=== PATIENT | female | born 1975 | race Caucasian/White ===

== ENCOUNTER → 2021-01-26 | Outpatient (CLI) | payer BC ==
[~2021-01-26] MED LIST: CETI10TA20 PO; HYDR-3454 PO; PROZAC PO
--- NOTE | 2021-01-26 11:52 | Diagnostic Imaging Report ---
INDICATION: Routine screening. Comparison is made with prior mammogram from 06/25/2016. 2-D and 3-D bilateral screening mammography was performed with CAD. Scattered fibroglandular densities are identified bilaterally. Benign nodularity in both breasts appears stable. No spiculated mass or malignant-appearing microcalcifications are seen. Axillae are unremarkable. IMPRESSION: BI-RADS Category 2 No mammographic features suspicious for malignancy are identified. ACR BI-RADS Category 2: Benign findings. Result letter will be mailed to the patient. Note: At least 10% of breast cancer is not imaged by mammography. Dictated by: Dictated on workstation # [id number]
== END ==
LOC: RAD 09:15
PROVIDERS: ATTEND Nurse Practitioner
DX: Z12.31 Encounter for screening mammogram for malignant neoplasm of breast (principal)
CPT/HCPCS: 77063; 77067

== ENCOUNTER → 2021-10-08 | Outpatient (CLI) | payer BC | LOC: PREOP 05:37 | PROVIDERS: ATTEND Surgery | DX: Z01.818 Encounter for other preprocedural examination (principal) ==

== ENCOUNTER 2021-10-16 10:47 | Day surgery (SDC) | payer BC ==
[~2021-10-16] VITALS: Ht 162.6 cm; Wt 114.5 kg
[2021-10-16] MEDS ORDERED: LACTATED RINGERS 1,000 ML IV ONE (10:49)
[2021-10-16] MEDS ORDERED: LACTATED RINGERS 1,000 ML IV STA (10:52)
[2021-10-16 11:15] VITALS: BP 126/78
[2021-10-16] MEDS ORDERED: PROPOFOL INJECTION 50 ML IV ONE (11:31)
--- NOTE | 2021-10-16 11:36 | Progress Note-Pre Operative ---
Pre-Operative Progress Note H&P Reviewed The H&P was reviewed, patient examined and no changes noted. Date Seen by Provider: Oct 16, 2021 Time Seen by Provider: 11:36 Date H&P Reviewed: Oct 16, 2021 Time H&P Reviewed: 11:36 Pre-Operative Diagnosis: screening colonoscopy PARAG HARO DO Oct 16, 2021 11:36
[2021-10-16] MEDS ORDERED: MIDAZOLAM 2 MG/2 ML (VERSED) VIAL ONE (11:39)
--- NOTE | 2021-10-16 12:04 | Progress Note-Post Operative ---
Post-Operative Progess Note Surgeon (s)/Time Study Technologist (s) Surgeon PARAG HARO DO Time Study Technologist: na Pre-Operative Diagnosis screening colonoscopy Post-Operative Diagnosis normal colonoscopy Procedure & Operative Findings Date of Procedure 10/16/21 Procedure Performed/Findings colonoscopy Anesthesia Type per nursery technician Estimated Blood Loss Estimated blood loss (mL): none Specimens/Packing Specimens Removed na PARAG HARO DO Oct 16, 2021 12:04
[2021-10-16 12:05] VITALS: BP 92/53
--- NOTE | 2021-10-16 12:05 | Discharge Inst-Simple/Standard ---
Discharge Inst-Standard Patient Instructions/Follow Up Plan of Care/Instructions/FU: 2 weeks [place] Activity as Tolerated: Yes Discharge Diet: Regular Diet PARAG HARO DO Oct 16, 2021 12:05
--- NOTE | 2021-10-16 12:05 | Anesthesia-General Post-Op ---
MAC Patient Condition Mental Status/LOC: Same as Preop Cardiovascular: Satisfactory Nausea/Vomiting: Absent Respiratory: Satisfactory Pain: Controlled Complications: Absent Post Op Complications Complications None Follow Up Care/Instructions Patient Instructions None needed. Anesthesiology Discharge Order Discharge Order Patient is doing well, no complaints, stable vital signs, no apparent adverse anesthesia problems. No complications reported per nursing. MILADYS SALMON CRNA Oct 16, 2021 12:05
[2021-10-16 12:30] VITALS: BP 107/70
--- NOTE | 2021-10-16 16:22 | OPERATIVE REPORT ---
DATE OF SERVICE: 10/16/2021 PREOPERATIVE DIAGNOSIS: Screening colonoscopy. POSTOPERATIVE DIAGNOSIS: Normal colon. PROCEDURE: Colonoscopy. SURGEON: Parag Whatley DO ANESTHESIA: Per DELIMER. ESTIMATED BLOOD LOSS: None. COMPLICATIONS: None. INDICATIONS: The patient is a 46-year-old female needing screening colonoscopy. She understands risks and benefits and wishes to proceed. Consent was signed in the chart. DESCRIPTION OF PROCEDURE: The patient was taken to endoscopy suite, placed in left lateral recumbent position. Timeout was performed. Digital rectal exam was performed. No palpable polyps, masses or ulcerations. Scope was inserted in the rectum and advanced all the way to cecum with minimal difficulty. Prep was adequate. Scope was slowly retracted back. No polyps, masses or ulcerations within the cecum, ascending, transverse, descending, sigmoid colon. Once in the rectum, scope was retroflexed noting no other pathology. Scope was returned to its normal position, slowly withdrawn until completely removed. The patient tolerated procedure well without any complications, taken to recovery room in stable condition. RECOMMENDATIONS: The patient will need repeat colonoscopy in 10 years unless family history of colon cancer, which then be 5 years. Any issues before that be seen at that time. CC: Juliet Brewster - requested, unable to deliver. Job ID: [id number] DocumentID: [id number] Dictated Date: 10/16/2021 12:07:36 [employer] Direction Specialist Date: 10/16/2021 16:21:13 Dictated By: PARAG WHATLEY DO
== END 2021-10-16 12:36 | disposition home or self-care (01) ==
LOC: ENDO 10:47
PROVIDERS: ATTEND Surgery
DX: Z12.11 Encounter for screening for malignant neoplasm of colon (principal); E66.01 Morbid (severe) obesity due to excess calories; Z68.41 Body mass index [BMI] 40.0-44.9, adult
CPT/HCPCS: 84703